=== PATIENT | female | born 1975 | race Two or more races ===

== ENCOUNTER 2017-08-08 12:00 | Emergency (ER) | payer OTHER ==
[~2017-08-08] VITALS: Ht 160 cm; Wt 58.1 kg
[~2017-08-08 12:00] MED LIST: BACLOFEN20 MG; DICLOFENAC POTA50 MG; PNEU16DI2
== END 2017-08-08 14:41 | disposition home or self-care (01) ==
LOC: ER 12:00
DX: B34.9 Viral infection, unspecified (principal)

== ENCOUNTER 2018-02-11 07:53 | Emergency (ER) | payer OTHER ==
[~2018-02-11] VITALS: Ht 160 cm; Wt 56.7 kg
[2018-02-11] MEDS ORDERED: ZITHROMAX200 MG PO (12:06)
[2018-02-11] MEDS ORDERED: TESSALON PERLE100 MG PO (12:06)
== END 2018-02-11 13:00 | disposition home or self-care (01) ==
LOC: ER 07:53
DX: J31.2 Chronic pharyngitis (principal)

== ENCOUNTER 2018-09-18 00:09 | Emergency (ER) | payer OTHER ==
[~2018-09-18] VITALS: Ht 160 cm; Wt 56.7 kg
[~2018-09-18 00:09] MED LIST changes: +TESSALON PERLE100 MG PO; +ZITHROMAX200 MG PO
[2018-09-18] MEDS ORDERED: IBUPROFEN600 MG PO (01:26)
[2018-09-18] MEDS ORDERED: AMOX-CLAV 875-1 EACH PO (01:26)
[2018-09-18] MEDS ORDERED: INTESTINEX680 M1 PO (01:26)
== END 2018-09-18 01:34 ==
LOC: ER 00:09
DX: L72.3 Sebaceous cyst (principal)

== ENCOUNTER 2019-01-25 17:02 | Emergency (ER) | payer OTHER ==
[~2019-01-25] VITALS: Ht 160 cm; Wt 58.1 kg
[~2019-01-25 17:02] MED LIST changes: +AMOX-CLAV 875-1 EACH PO; +IBUPROFEN600 MG PO; +INTESTINEX680 M1 PO
== END 2019-01-25 21:24 | disposition home or self-care (01) ==
LOC: ER 17:02
DX: I16.1 Hypertensive emergency (principal); I10 Essential (primary) hypertension; M54.2 Cervicalgia

== ENCOUNTER 2019-07-01 00:38 | Emergency (ER) | payer OTHER ==
[~2019-07-01] VITALS: Ht 160 cm; Wt 59.0 kg
[2019-07-01] MEDS ORDERED: PEPCID40 MG PO (03:40)
[2019-07-01] MEDS ORDERED: MEDROL8 MG PO (03:40)
[2019-07-01] MEDS ORDERED: BENADRYL25 MG PO (03:40)
== END 2019-07-01 04:10 ==
LOC: ER 00:38
DX: L23.89 Allergic contact dermatitis due to other agents (principal)

== ENCOUNTER 2021-02-26 09:33 | Emergency (ER) | payer OTHER ==
[~2021-02-26] VITALS: Ht 160 cm; Wt 58.5 kg
[~2021-02-26 09:33] MED LIST changes: +BENADRYL25 MG PO; +MEDROL8 MG PO; +PEPCID40 MG PO
[2021-02-26] MEDS ORDERED: HYZAAR 50-12.51 EACH PO (17:37)
== END 2021-02-26 17:47 | disposition home or self-care (01) ==
LOC: ER 09:33
DX: I16.0 Hypertensive urgency (principal); I10 Essential (primary) hypertension; R07.89 Other chest pain

== ENCOUNTER 2022-07-10 09:39 | Emergency (ER) | payer OTHER ==
[~2022-07-10] VITALS: Ht 160 cm; Wt 64.9 kg
[~2022-07-10 09:39] MED LIST changes: +HYZAAR 50-12.51 EACH PO
== END 2022-07-10 13:20 | disposition home or self-care (01) ==
LOC: ER 09:39
DX: T14.90XA Injury, unspecified, initial encounter (principal); V49.9XXA Car occupant (driver) (passenger) injured in unspecified traffic accident, initial encounter; Y93.9 Activity, unspecified; Y92.413 State road as the place of occurrence of the external cause; Y99.9 Unspecified external cause status; M54.2 Cervicalgia

== ENCOUNTER 2022-09-18 19:08 | Emergency (ER) | payer OTHER ==
[~2022-09-18] VITALS: Ht 160 cm; Wt 63.5 kg
== END 2022-09-18 19:58 | disposition home or self-care (01) ==
LOC: ER 19:08
DX: J06.9 Acute upper respiratory infection, unspecified (principal)

== ENCOUNTER 2023-11-12 10:08 | Emergency (ER) | payer OTHER ==
[~2023-11-12] VITALS: Ht 160 cm; Wt 60.3 kg
[2023-11-12] MEDS ORDERED: MECLIZINE HCL 25 MG TABLET PO ONE (10:45)
[2023-11-12 11:25] LABS: HEMATOCRIT 35.5 % (36.0-45.00); HEMOGLOBIN 11.5 g/dL (12.0-15.00); MEAN CORPUSCULAR HEMOGLOBIN 22.4 pg (27.00-32.0); MEAN CORPUSCULAR HGB CONC 32.4 g/dl (32.0-36.0); PLATELET COUNT 229 K/uL (150-450); RED BLOOD COUNT 5.15 M/uL (4.00-6.00); RED CELL DISTRIBUTION WIDTH 14.2 % (11.5-14.5)
[2023-11-12 11:51] LABS: CALCIUM 9.7 mg/dL (8.5-10.1); CREATININE SERUM 0.76 mg/dL (0.55-1.02); GFR 80.55; POTASSIUM 4.33 mEq/L (3.5-5.1)
[2023-11-12 12:58] LABS: PH,URINE 7.5 (5.0-8.0); URINE APPEARANCE Clear; URINE BILIRRUBIN Negative (NEGATIVE); URINE BLOOD Negative; URINE COLOR Yellow; URINE GLUCOSE Negative (NEGATIVE); URINE LEUKOCYTE Large; URINE NITRATE Negative; URINE PROTEIN Negative (NEGATIVE); URINE UROBILINOGEN 0.2 E.U./dl
[2023-11-12 13:02] LABS: URINE BACTERIA 188.9 uL (0.0-1933); URINE EPITHELIAL CELLS 21.1 uL (0.0-38.8); URINE RBC 4.1 uL (0.0-20.8); URINE WBC 181.8 uL (0.0-23.2)
[2023-11-13] MEDS ORDERED: 0.9 % SODIUM CHLORIDE 1,000 ML IV SCH (09:00)
== END 2023-11-12 15:48 | disposition home or self-care (01) ==
LOC: ER 10:08
PROVIDERS: Emergency Medicine
DX: R42 Dizziness and giddiness (principal)
CPT/HCPCS: 36415; 70450; 96365; 99283; J7030

== ENCOUNTER 2025-02-18 21:08 | Emergency (ER) | payer OTHER ==
[~2025-02-18] VITALS: Ht 160 cm; Wt 63.5 kg
[2025-02-18] MEDS ORDERED: NIFEDIPINE ER30 M1 PO (22:13)
[2025-02-18] MEDS ORDERED: ENALAPRILAT DIHYDRATE 1.25 MG/ML VIAL IV STA (22:29)
[2025-02-18] MEDS ORDERED: ENALAPRILAT DIHYDRATE 1.25 MG/ML VIAL IV ONE (22:37)
[2025-02-18 23:29] LABS: BASO % 0.7 % (0.1-1.2); EOS # 0.08 (0.04-0.54); EOS % 1.3 % (0.7-7.0); LYMPH # 1.90 (1.18-3.74); LYMPH % 31.1 % (19.3-53.1); MEAN PLATELET VOLUME 10.90 fl (9.4-12.4); MONO # 0.38 (0.24-0.82); MONO % 6.2 % (4.7-12.5); NEUT # 3.70 (1.56-6.13); NEUT % 60.5 % (34.0-71.1); RED CELL DISTRIBUTION WIDTH 15.0 % (11.6-14.4)
[2025-02-18 23:48] LABS: BUN CREA RATIO 16.0 (7.0-25.0); CREATININE SERUM 0.88 mg/dL (0.55-1.02); GFR 67.74; GLUCOSE FASTING 106.0 mg/dL (65-100); OSMOLALITY SERUM 286.0 MOSM/KG (275-295)
[2025-02-18 23:50] LABS: URINE APPEARANCE Clear; URINE BILIRRUBIN Negative (NEGATIVE); URINE BLOOD Negative; URINE COLOR Yellow; URINE GLUCOSE Negative (NEGATIVE); URINE KETONE Negative (NEGATIVE); URINE LEUKOCYTE Negative; URINE NITRATE Negative; URINE PROTEIN Negative (NEGATIVE); URINE UROBILINOGEN 0.2 E.U./dl
[2025-02-18] MEDS ORDERED: LABETALOL HCL 100 MG/20 ML ML IV STA (23:51)
[2025-02-18 23:52] LABS: URINE RBC 4.6 uL (0.0-20.8); URINE WBC 1.8 uL (0.0-23.2)
[2025-02-19 00:01] LABS: URINE BACTERIA 2.3 uL (0.0-1933); URINE CAST 0.00 uL (0.0-1.40); URINE EPITHELIAL CELLS 0.9 uL (0.0-38.8)
[2025-02-19] MEDS ORDERED: LABETALOL HCL 100 MG/20 ML ML ONE (00:23)
[2025-02-19] MEDS ORDERED: NIFE60TA3 PO (02:31)
== END 2025-02-19 02:38 | disposition home or self-care (01) ==
LOC: ER 21:44
PROVIDERS: General Practice
DX: R51.9 Headache, unspecified (principal); I10 Essential (primary) hypertension
CPT/HCPCS: 36415; 96365; 99282; J3490 ×2